=== PATIENT | female | born 1945 | race Hispanic/Latino ===

== ENCOUNTER 2017-08-05 11:56 | Emergency (ER) | payer MEDICARE, BC ==
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
[2017-08-05] MEDS ORDERED: Sodium Chloride 0.9% 1,000 ML IV SCH (12:45)
[2017-08-05 13:01] LABS: VENOUS BLOOD GAS BASE EXCESS 2.9 mmol/L (0.0-2.0); VENOUS BLOOD GAS PO2 28 mm/Hg (30-55); VENOUS BLOOD PH 7.35 (7.32-7.43)
[2017-08-05 13:03] LABS: URINE BILIRUBIN NEGATIVE (NEGATIVE); URINE BLOOD NEGATIVE (NEGATIVE); URINE GLUCOSE (UA) NEGATIVE (NEGATIVE); URINE LEUKOCYTE ESTERASE NEGATIVE Leu/uL (NEGATIVE); URINE PROTEIN NEGATIVE mg/dL (<30 mg/dL); URINE UROBILINOGEN 0.2 E.U./dL (<1 E.U./dL)
[2017-08-05 13:04] LABS: URINE APPEARANCE CLEAR (CLEAR); URINE COLOR YELLOW (YELLOW)
--- NOTE | 2017-08-05 13:07 | RAD ---
HISTORY: abdominal pain, cholecystitis, OR COMPARISON: No prior. FINDINGS: LUNGS: No active pulmonary disease. PLEURA: No significant pleural effusion identified, no pneumothorax apparent. CARDIOVASCULAR: Normal. OSSEOUS STRUCTURES: No significant abnormalities. VISUALIZED UPPER ABDOMEN: Normal. OTHER FINDINGS: None. IMPRESSION: No active disease.
[2017-08-05 13:13] LABS: ALB/GLOB RATIO 1.5 (1.1-1.8); ALBUMIN 4.6 g/dL (3.0-4.8); ALT/SGPT 29 U/L (7-56); AMYLASE 52 U/L (35-125); AST/SGOT 26 U/L (14-36); BASO # 0.07 K/mm3 (0.0-2.0); BASO % 0.8 % (0.0-3.0); BLOOD UREA NITROGEN 20 mg/dL (7-21); CALCIUM 9.6 mg/dL (8.4-10.5); EOS # 0.2 (0.0-0.7); EOS % 2.1 % (1.5-5.0); GFR AFRICAN-AMERICAN > 60; GFR NON-AFRICAN AMERICAN > 60; GRAN # 5.22 (1.4-6.5); GRAN % 61.3 % (50.0-68.0); HEMOGLOBIN 13.5 g/dL (12.0-16.0); LYMPH # 2.5 (1.2-3.4); LYMPH % 29.3 % (22.0-35.0); MEAN CELL VOLUME 94.8 fl (80.0-105.0); MEAN CORPUSCULAR HEMOGLOBIN 32.1 pg (25.0-35.0); MEAN CORPUSCULAR HGB CONC 33.9 g/dl (31.0-37.0); MEAN PLATELET VOLUME 10.7 fl (7.0-11.0); MONO # 0.6 (0.1-0.6); MONO % 6.5 % (1.0-6.0); RBC 4.2 10^6/uL (3.5-6.1); RED CELL DISTRIBUTION WIDTH 13.1 % (11.5-14.5); WHITE BLOOD COUNT 8.5 10^3/ul (4.5-11.0)
[2017-08-05 13:14] LABS: LIPASE < 10 U/L (23-300)
[2017-08-05 13:16] LABS: INR 0.95 (0.93-1.08); PARTIAL THROMBOPLASTIN TIME 28.7 Seconds (25.1-36.5); PROTHROMBIN TIME 10.9 SECONDS (9.4-12.5)
[2017-08-05 13:24] LABS: TROPONIN I < 0.01 ng/mL
--- NOTE | 2017-08-05 14:56 | NM ---
PROCEDURE: Nuclear Medicine Hepatobiliary Scan HISTORY: cholecystitis COMPARISON: August 05, 2017. Abdominal ultrasound TECHNIQUE: 5.4 mCi of technetium 99m Mebrofenin was administered intravenously. Planar images of the abdomen were obtained at 5 min intervals to 60 mins. Delayed images were also obtained. FINDINGS: LIVER: Timely and homogenous uptake. COMMON BILE DUCT: identified at 15.0 mins. GALLBLADDER: identified at 15 mins. SMALL BOWEL: Identified at 15 mins. IMPRESSION: Normal Hepatobiliary Scan. The cystic duct is patent.
[2017-08-05] MEDS ORDERED: metroNIDAZOLE IV 500 mg/100 ml 500 MG/100 ML BAG IVPB STA (15:20)
[2017-08-05] MEDS ORDERED: Ciprofloxacin 400mg/200ml D5W 400 MG/200 ML BAG IVPB STA (15:20)
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
[2017-08-05 15:39] VITALS: RESP 18
--- NOTE | 2017-08-05 16:45 | CARD ---
APPROVED REPORT EKG Measurement Heart [id number] <Conclusion> Normal sinus rhythm Possible Anterior infarct, age undetermined Abnormal ECG
[2017-08-05 18:32] VITALS: BP 146/76; PULSE 68; O2SAT 98
[2017-08-06 00:10] VITALS: TEMP 98.2
== END 2017-08-05 18:40 | disposition home or self-care (01) ==
LOC: ED 11:56
DX: K80.20 Calculus of gallbladder without cholecystitis without obstruction (principal)
CPT/HCPCS: 71045; 78227; 80053; 81003; 82150; 82550; 82803; 83615; 83690; 84484; 85025; 85610; 85730; 86850; 86900; 87040; 87086; 93005; 96374; 96375; 99284; A9537; J0744; J7030

== ENCOUNTER 2017-08-31 07:03 | Day surgery (SDC) | payer MEDICARE, BC ==
[2017-08-20 10:53] VITALS: BMI 20.2
[2017-08-31] MEDS ORDERED: Iohexol 240 (50 ml) ONE (09:51)
[2017-08-31] MEDS ORDERED: Bupivacaine 0.5% Inj(30mL) ONE (09:51)
[2017-08-31] MEDS ORDERED: Midazolam 2 MG/2 ML VIAL ONE (10:02)
[2017-08-31] MEDS ORDERED: Propofol 10 mg/ml Inj (20 ML) ONE (10:04)
[2017-08-31] MEDS ORDERED: Rocuronium 10 mg/ml (5 ml) ONE (10:06)
[2017-08-31] MEDS ORDERED: Ciprofloxacin 400mg/200ml D5W 400 MG/200 ML BAG IVPB ONE (10:06)
[2017-08-31] MEDS ORDERED: Lidocaine 1% Inj (20ml) ONE (10:06)
[2017-08-31] MEDS ORDERED: Ciprofloxacin 400mg/200ml D5W IVPB ONE (10:10)
[2017-08-31] MEDS ORDERED: Neostigmine Methylsulfate 3mg/3ml Syringe IV ONE (11:01)
[2017-08-31] MEDS ORDERED: HYDROmorphone 0.5 mg/0.5 ml ISec IVP PRN (12:07)
[2017-08-31] MEDS ORDERED: DiphenhydrAMINE 50 mg/ml Inj IVP PRN (12:08)
[2017-08-31] MEDS ORDERED: DiphenhydrAMINE 50 mg/ml Inj IM ONE (12:10)
--- NOTE | 2017-08-31 12:10 | PCM.SURG1 ---
Surgeon's Initial Post Op Note - Surgeon's Notes Surgeon: Dr. Calvert Casing Crew: Yaneth PGY1 Type of Anesthesia: General Endo Anesthesia Administered By: Dr. Handley Pre-Operative Diagnosis: Cholecystitis, Cholelithiasis Operative Findings: Cholecystitis, Cholelithiasis Post-Operative Diagnosis: Cholecystitis, Cholelithiasis Operation Performed: Laparoscopic Cholecystectomy with Intraoperative cholangiogram Specimen/Specimens Removed: Gallbladder Estimated Blood Loss: EBL {In ML}: 10 Blood Products Given: N/A Drains Used: No Drains Post-Op Condition: Good Date of Surgery/Procedure: 08/31/17 Time of Surgery/Procedure: 12:10
[2017-08-31] MEDS ORDERED: DiphenhydrAMINE 50 mg/ml Inj ONE (12:11)
[2017-08-31] MEDS ORDERED: Lactated Ringer's 1,000 ML IV SCH (12:15)
[2017-08-31 13:53] VITALS: RESP 18; TEMP 98.2
[2017-08-31 14:40] VITALS: BP 120/45; PULSE 71; O2SAT 95
--- NOTE | 2017-08-31 18:06 | RAD ---
PROCEDURE: Fluoroscopy up to 1 hr. HISTORY: ? CBD OBST COMPARISON: None TECHNIQUE: Standard protocol for this study/examination. FINDINGS: Total fluoroscopic time (continuous mode) utilized during the procedure (seconds) 16.3. Total exam DLP: (mGy) 1.49. IMPRESSION: Less than 1 hr fluoroscopic time utilized during performance of the procedure.
--- NOTE | 2017-08-31 23:49 | OP ---
PROCEDURE DATE: 08/31/2017 PREOPERATIVE DIAGNOSES: Chronic cholecystitis and cholelithiasis. POSTOPERATIVE DIAGNOSES: Chronic cholecystitis and cholelithiasis. PROCEDURE PERFORMED: Laparoscopic cholecystectomy with intraoperative cholangiogram. SURGEON: David Calvert MD [employer] MANAGER: Sean Wolfe DO ANESTHESIOLOGIST: Adair Handley MD ANESTHESIA: General endotracheal anesthesia. ESTIMATED BLOOD LOSS: Minimal. SPECIMENS: Gallbladder with gallstones. INDICATIONS: The patient is a 72-year-old female with history of recurrent right upper quadrant abdominal pain and admitted previously to the hospital for acute cholecystitis. The patient now comes in for laparoscopic cholecystectomy. DESCRIPTION OF PROCEDURE: The patient was brought to the operating room and placed on the operating table in supine position. The patient was connected to EKG, blood pressure, and pulse oximetry monitors. The patient then underwent general endotracheal anesthesia, and was prepped and draped in usual sterile fashion. First, a standard time-out procedure took place and everybody in the room agreed as to the patient's identity, diagnoses, and procedure to be performed. Operative plan as well as postoperative plan was discussed with the surgical team. First using 2 towel clips, the anterior abdominal wall was elevated and a Veress needle was inserted through a small incision superior to the umbilicus. Once pneumoperitoneum was obtained, a 12 mm trocar was inserted through that incision and careful evaluation of the abdominal cavity was done. There was normal bowel seen throughout the abdomen. There were no abnormalities noted on the liver or stomach. There was no significant amount of visible fluid in the abdominal cavity. The gallbladder had multiple adhesions of the omentum to the gallbladder wall. Next, we placed a second 5 mm trocar in the subxiphoid position under direct visualization. Once in place, we proceeded with dissection of the gallbladder by first taking down the adhesion of the omentum to the gallbladder freeing the infundibulum of the gallbladder and carefully exploring the area of the cystic duct. The cystic duct was carefully dissected out from the adjacent cystic artery which was also dissected out and the cystic duct was clipped proximally. It was then incised carefully for portion of in order to gain opening to the cystic duct. Once this was done, the cholangiocatheter was inserted into the cystic duct and the cholangiogram was obtained under direct visualization with fluoroscopy. There was a prompt flow of dye into the entire biliary tree filling it without any defects, indicating any presents of the stones. The common bile duct emptied into the duodenum without any delay. At this point, the cholangiocatheter was removed, cystic duct was clipped distally and transected. Cystic artery was also clipped proximally and distally and transected. Using electrocautery, the gallbladder was detached from the liver and was placed in an EndoCatch bag and removed for the periumbilical incision. The right upper quadrant was now copiously irrigated. All the irrigant fluid was suctioned out. An excellent hemostasis was obtained and at this point, the pneumoperitoneum was released and trocars removed. The trocar sites were evaluated prior to removal for bleeding and there was none noted. Once pneumoperitoneum was released, the wounds were closed using 0 Vicryl for the fascia, 3-0 Vicryl for the subcutaneous tissues, and 4-0 Monocryl for skin. A sterile Dermabond dressing was applied to the wound. The patient tolerated the procedure well and there were no complications. The patient was awakened and transferred to the recovery room for further observation. David Calvert MD
== END 2017-08-31 16:00 | disposition home or self-care (01) ==
LOC: SDS 07:03
PROVIDERS: ATTEND General Practice
DX: K80.10 Calculus of gallbladder with chronic cholecystitis without obstruction (principal)
CPT/HCPCS: 47563; 74300; 88304; J0131; J0744; J1100; J1170; J1200; J1885; J2250; J2405; J2704; J2710; J2765; J3010; J7120 ×2; Q9966

== ENCOUNTER 2018-01-13 06:31 | Day surgery (SDC) | payer MEDICARE, BC ==
[2018-01-07 10:25] VITALS: BMI 20.8
[2018-01-13 07:03] VITALS: RESP 16
[2018-01-13] MEDS ORDERED: Lidocaine 1% Inj (20ml) ONE (08:06)
[2018-01-13] MEDS ORDERED: Propofol 10 mg/ml Inj (20 ML) ONE (08:06)
[2018-01-13] MEDS ORDERED: Sodium Chloride 0.9% 1,000 ML IV SCH (08:45)
[2018-01-13 09:42] VITALS: BP 137/66; PULSE 60; TEMP 97.8; O2SAT 97
== END 2018-01-13 09:59 | disposition home or self-care (01) ==
LOC: ENDO 06:31
PROVIDERS: ATTEND Specialist
DX: Z12.11 Encounter for screening for malignant neoplasm of colon (principal); K64.8 Other hemorrhoids; K57.30 Diverticulosis of large intestine without perforation or abscess without bleeding; Z85.3 Personal history of malignant neoplasm of breast; Z87.19 Personal history of other diseases of the digestive system; Z90.10 Acquired absence of unspecified breast and nipple; Z98.49 Cataract extraction status, unspecified eye; Z88.0 Allergy status to penicillin; Z88.8 Allergy status to other drugs, medicaments and biological substances

== ENCOUNTER 2018-04-21 11:00 | Outpatient (CLI) | payer MEDICARE, BC | END 2018-04-21 11:01 | disposition home or self-care (01) | LOC: RAD 11:00 ==